=== PATIENT | male | born 1930 | race African-American/Black ===

== ENCOUNTER 2018-08-23 09:23 | Inpatient (IN) ==
[2018-08-23] MEDS ORDERED: ALBUTEROL/IPRATROPIUM 3 ML NEB RESP TX STA ×2 (10:52→14:49)
[2018-08-23] MEDS ORDERED: FUROSEMIDE 40 MG/4 ML VIAL IV STA (10:52)
[2018-08-23 11:08] LABS: Basophils % 0.3 % (0.0-0.8); Eosinophils # 0.1 10*3/uL (0.0-0.87); Eosinophils % 1.2 % (0.00-10.9); Hematocrit 44.4 VOL% (42.0-52.0); Hemoglobin 14.1 GM/DL (14.0-18.0); Immature Granulocytes % 0.5 %; Immature Granulocytes Absolute 0.04 #; Lymphocytes # 0.9 10*3/uL (1.4-4.0); Lymphocytes % 11.5 % (21.2-54.2); Mean Corpuscular HGB Conc 31.8 GM/DL (32-36); Mean Corpuscular Hemoglobin 26 PG (27-34); Mean Platelet Volume 11.3 FL (9.6-12.0); Monocytes # 0.8 10*3/uL (0.11-0.8); Monocytes % 10.7 % (1.7-12.7); Neutrophils # 5.9 10*3/uL (1.4-7.4); Neutrophils % 75.8 % (38.7-73.9); Platelet Count 218 T/CUMM (130-400); Red Blood Count 5.35 MC/CUMM (3.8-5.5); Red Cell Distribution Width 17.1 % (9.3-17.3); White Blood Count 7.8 T/CUMM (4-12)
[2018-08-23 11:16] LABS: INR 1.2; PT Patient Result 12.7 SECS
[2018-08-23 11:32] LABS: Alanine Aminotransferase 12 U/L (16-61); Albumin 3.5 G/DL (3.4-5.0); Alkaline Phosphatase 126 U/L (45-117); Aspartate Amino Transferase 30 U/L (0-37); Blood Urea Nitrogen 10 MG/DL (7-18); Calcium 9.4 MG/DL (8.5-10.1); Glucose 90 MG/DL (74-106); Osmolality,Calculated 273.7 MOS/KG (273-304); Potassium 3.1 MMOL/L (3.5-5.1); Sodium 138 MMOL/L (136-145); Total Protein 7.9 G/DL (6.4-8.3)
[2018-08-23 11:36] LABS: Ammonia < 10 UMOL/L (11-32)
[2018-08-23 11:50] LABS: Apearance,Urine CLEAR (Clear); Bilirubin,Urine Negative (Negative); Blood, Urine Negative (Negative); Glucose,Urine (UA) Negative (Negative); Hyaline Casts,Urine 1 /LPF (0-3); Ketones,Urine 5 mg/dL (Negative); Mucus,Urine Occasional /LPF (Occasional); Nitrite,Urine Negative (Negative); Protein,Urine Negative; RBC,Urine 1 /HPF (0-4); Urine Color Yellow (Yellow); Urine Specific Gravity 1.013 (1.001-1.035); WBC,Urine 1 /HPF (0-6)
[2018-08-23] MEDS ORDERED: POTASSIUM CHLORIDE 20 MEQ TABLET PO STA (12:03)
[2018-08-23 12:24] LABS: Sedimentation Rate-Westergren 28 MM/HR (0-20)
[2018-08-23] MEDS ORDERED: ONDANSETRON 4 MG/2 ML VIAL IV PRN (14:49)
[2018-08-23] MEDS ORDERED: ACETAMINOPHEN 325 MG TABLET PO PRN (14:49)
[2018-08-23 16:08] LABS: Troponin I 0.111 NG/ML (0.00-0.045)
[2018-08-23 16:09] LABS: Risk Ratio 2.82; VLDL CHOLESTEROL 16.6 MG/DL
[2018-08-23] MEDS: FUROSEMIDE 40 MG TABLET PO SCH (17:23)
[2018-08-23] MEDS: PANTOPRAZOLE 40 MG TABLET PO SCH (17:23)
[2018-08-23] MEDS: MEMANTINE 10 MG TABLET PO SCH (20:26)
[2018-08-23] MEDS: APIXABAN 5 MG TABLET PO SCH (20:26)
[2018-08-23] MEDS: DONEPEZIL 10 MG TABLET PO SCH (20:26)
[2018-08-23] MEDS: HALOPERIDOL 1 MG TABLET PO SCH (20:26)
[2018-08-23] MEDS: traMADol 50 MG TABLET PO SCH (20:27)
[2018-08-23] MEDS: PRAVASTATIN 20 MG TABLET PO SCH (20:27)
[2018-08-24 05:57] LABS: Basophils % 0.2 % (0.0-0.8); Eosinophils # 0.2 10*3/uL (0.0-0.87); Eosinophils % 2.5 % (0.00-10.9); Hematocrit 43.8 VOL% (42.0-52.0); Hemoglobin 13.6 GM/DL (14.0-18.0); Immature Granulocytes % 0.8 %; Immature Granulocytes Absolute 0.07 #; Lymphocytes # 1.1 10*3/uL (1.4-4.0); Lymphocytes % 13.2 % (21.2-54.2); Mean Corpuscular HGB Conc 31.1 GM/DL (32-36); Mean Corpuscular Hemoglobin 26 PG (27-34); Mean Corpuscular Volume 84.2 FL (87-102); Mean Platelet Volume 11.8 FL (9.6-12.0); Monocytes % 11.9 % (1.7-12.7); Neutrophils # 5.9 10*3/uL (1.4-7.4); Neutrophils % 71.4 % (38.7-73.9); Platelet Count 208 T/CUMM (130-400); Red Cell Distribution Width 16.7 % (9.3-17.3); White Blood Count 8.3 T/CUMM (4-12)
[2018-08-24 06:29] LABS: Calcium 9.6 MG/DL (8.5-10.1); Osmolality,Calculated 271.8 MOS/KG (273-304); Potassium 3.1 MMOL/L (3.5-5.1)
[2018-08-24 06:50] LABS: Troponin I 0.078 NG/ML (0.00-0.045)
[2018-08-24] MEDS ORDERED: POTASSIUM CHLORIDE 20 MEQ TABLET PO ONE (09:00)
[2018-08-24] MEDS: FUROSEMIDE 40 MG TABLET PO SCH ×2 (09:13→15:13)
[2018-08-24] MEDS: PANTOPRAZOLE 40 MG TABLET PO SCH (09:14)
[2018-08-24] MEDS: amLODIPine 5 MG TABLET PO SCH (09:14)
[2018-08-24] MEDS: FERROUS SULFATE 325 MG TABLET PO SCH (09:14)
[2018-08-24] MEDS: MEMANTINE 10 MG TABLET PO SCH ×2 (09:14→22:23)
[2018-08-24] MEDS: traMADol 50 MG TABLET PO SCH ×2 (09:14→22:23)
[2018-08-24] MEDS: predniSONE 5 MG TABLET PO SCH (09:14)
[2018-08-24] MEDS: APIXABAN 5 MG TABLET PO SCH ×2 (09:14→22:23)
[2018-08-24] MEDS: ALLOPURINOL 300 MG TABLET PO SCH (09:15)
[2018-08-24] MEDS: CETIRIZINE 10 MG TABLET PO SCH (09:15)
[2018-08-24] MEDS: HALOPERIDOL 1 MG TABLET PO SCH (22:23)
[2018-08-24] MEDS: PRAVASTATIN 20 MG TABLET PO SCH (22:23)
[2018-08-24] MEDS: DONEPEZIL 10 MG TABLET PO SCH (22:23)
[2018-08-25] MEDS: FUROSEMIDE 40 MG TABLET PO SCH ×2 (10:23→16:59)
[2018-08-25] MEDS: POTASSIUM CHLORIDE 8 MEQ CAPSULE PO SCH (10:23)
[2018-08-25] MEDS: traMADol 50 MG TABLET PO SCH ×2 (10:23→20:45)
[2018-08-25] MEDS: CETIRIZINE 10 MG TABLET PO SCH (10:23)
[2018-08-25] MEDS: APIXABAN 5 MG TABLET PO SCH ×2 (10:23→20:45)
[2018-08-25] MEDS: predniSONE 5 MG TABLET PO SCH (10:24)
[2018-08-25] MEDS: MEMANTINE 10 MG TABLET PO SCH ×2 (10:24→20:46)
[2018-08-25] MEDS: amLODIPine 5 MG TABLET PO SCH (10:24)
[2018-08-25] MEDS: PANTOPRAZOLE 40 MG TABLET PO SCH (10:24)
[2018-08-25] MEDS: FERROUS SULFATE 325 MG TABLET PO SCH (10:24)
[2018-08-25] MEDS: ALLOPURINOL 300 MG TABLET PO SCH (10:24)
[2018-08-25 18:33] LABS: Apearance,Urine CLEAR (Clear); Bilirubin,Urine Negative (Negative); Blood, Urine Small mg/dL (Negative); Glucose,Urine (UA) Negative (Negative); Ketones,Urine Negative (Negative); Mucus,Urine Occasional /LPF (Occasional); Nitrite,Urine Negative (Negative); Protein,Urine Negative; RBC,Urine 1 /HPF (0-4); Urine Color Yellow (Yellow); Urine Specific Gravity 1.011 (1.001-1.035); WBC,Urine 1 /HPF (0-6)
[2018-08-25] MEDS: DONEPEZIL 10 MG TABLET PO SCH (20:44)
[2018-08-25] MEDS: HALOPERIDOL 1 MG TABLET PO SCH (20:44)
[2018-08-25] MEDS: PRAVASTATIN 20 MG TABLET PO SCH (20:45)
[2018-08-26 07:40] LABS: Basophils % 0.2 % (0.0-0.8); Eosinophils % 0.3 % (0.00-10.9); Hemoglobin 14.8 GM/DL (14.0-18.0); Immature Granulocytes % 0.7 %; Immature Granulocytes Absolute 0.08 #; Lymphocytes # 0.8 10*3/uL (1.4-4.0); Mean Corpuscular HGB Conc 30.8 GM/DL (32-36); Mean Corpuscular Hemoglobin 26 PG (27-34); Mean Corpuscular Volume 85.1 FL (87-102); Mean Platelet Volume 11.6 FL (9.6-12.0); Monocytes # 1.4 10*3/uL (0.11-0.8); Monocytes % 11.7 % (1.7-12.7); Neutrophils # 9.3 10*3/uL (1.4-7.4); Neutrophils % 80.1 % (38.7-73.9); Platelet Count 201 T/CUMM (130-400); Red Blood Count 5.64 MC/CUMM (3.8-5.5); Red Cell Distribution Width 17.5 % (9.3-17.3); White Blood Count 11.6 T/CUMM (4-12)
[2018-08-26 07:56] LABS: Hypochromasia 1+; Platelet Estimate Adequate
[2018-08-26 08:16] LABS: Calcium 9.8 MG/DL (8.5-10.1); Osmolality,Calculated 265.4 MOS/KG (273-304); Potassium 4.1 MMOL/L (3.5-5.1)
[2018-08-26] MEDS: FUROSEMIDE 40 MG TABLET PO SCH ×2 (08:19→16:41)
[2018-08-26] MEDS: PANTOPRAZOLE 40 MG TABLET PO SCH (08:20)
[2018-08-26] MEDS: APIXABAN 5 MG TABLET PO SCH ×2 (08:20→20:16)
[2018-08-26] MEDS: FERROUS SULFATE 325 MG TABLET PO SCH (08:20)
[2018-08-26] MEDS: predniSONE 5 MG TABLET PO SCH (08:20)
[2018-08-26] MEDS: ALLOPURINOL 300 MG TABLET PO SCH (08:20)
[2018-08-26] MEDS: CETIRIZINE 10 MG TABLET PO SCH (08:20)
[2018-08-26] MEDS: MEMANTINE 10 MG TABLET PO SCH ×2 (08:20→20:16)
[2018-08-26] MEDS: traMADol 50 MG TABLET PO SCH ×2 (08:20→20:15)
[2018-08-26] MEDS: amLODIPine 5 MG TABLET PO SCH (08:21)
[2018-08-26] MEDS: DONEPEZIL 10 MG TABLET PO SCH (20:15)
[2018-08-26] MEDS: PRAVASTATIN 20 MG TABLET PO SCH (20:16)
[2018-08-26] MEDS: HALOPERIDOL 1 MG TABLET PO SCH (20:17)
[2018-08-27 07:48] VITALS: BP 167/89
[2018-08-27] MEDS: traMADol 50 MG TABLET PO SCH (09:21)
[2018-08-27] MEDS: FUROSEMIDE 40 MG TABLET PO SCH (09:21)
[2018-08-27] MEDS: PANTOPRAZOLE 40 MG TABLET PO SCH (09:21)
[2018-08-27] MEDS: FERROUS SULFATE 325 MG TABLET PO SCH (09:21)
[2018-08-27] MEDS: ALLOPURINOL 300 MG TABLET PO SCH (09:21)
[2018-08-27] MEDS: amLODIPine 5 MG TABLET PO SCH (09:21)
[2018-08-27] MEDS: CETIRIZINE 10 MG TABLET PO SCH (09:22)
[2018-08-27] MEDS: APIXABAN 5 MG TABLET PO SCH (09:22)
[2018-08-27] MEDS: predniSONE 5 MG TABLET PO SCH (09:22)
[2018-08-27] MEDS: POTASSIUM CHLORIDE 8 MEQ CAPSULE PO SCH (09:22)
[2018-08-27] MEDS: MEMANTINE 10 MG TABLET PO SCH (09:22)
== END 2018-08-27 11:53 | disposition swing bed (61) | DRG 884 ==
LOC: EDUNIT# → N.ED 09:23 → N.EDINP 12:48 → SUATTDRO 12:48 → N.2E 13:38
PROVIDERS: ADMIT Internal Medicine; ATTEND Internal Medicine